=== PATIENT | female | born 1960 | race Caucasian/White ===

== ENCOUNTER → 2016-07-29 | Day surgery (SDC) | payer MEDICARE, OTHER ==
[~2016-07-29] MED LIST: AVANZA; AVINZA; CELEXA PO; CYMBALTA; DESYREL50 M1 PO; EFFEXOR PO; HYDROCODON-ACE1 EAC4 PO; HYDROCODON-ACE1 EAC5 PO; HYDROCODONE-APA1 T33 PO; IVERMECTIN3 MG PO; KADIAN PO; MOBIC15 MG PO; MONODOX100 MG PO; MS CONTIN PO; PAXIL PO; SPIRONOLACTONE50 MG PO; ZOLOFT PO
--- NOTE | ~2016-07-29 | OR ---
Unit #: [id number] #: [id number] Patient: BRENDON ASKEW [id number] [address] [address] [id number] O MR#: [id number] NAME: BRENDON ASKEW ROOM: Date of Procedure: 07/29/2016 Admission Date: 07/29/2016 Surgeon: Shahram Godinez M.D. : 1960 Attending Physician: Shahram Godinez M.D. Primary Care Physician: Generic Doctor Not In System OPERATIVE REPORT PREOPERATIVE DIAGNOSIS Chronic regional pain syndrome, lower extremity. POSTOPERATIVE DIAGNOSIS Chronic regional pain syndrome, lower extremity. PROCEDURE PERFORMED Lumbar sympathetic block with intravenous sedation and fluoroscopic guidance for needle localization. INDICATIONS FOR PROCEDURE The patient is a 55-year-old female with return of the pain flared associated with her CRPS affecting right lower extremity. This is due to her prior extensive knee surgery. She has been through extensive rehabilitative and interventional treatment. Last sympathetic blockade was done in 05/2015. She had resurgence of the symptoms associated with CRPS. Based on history, pathology, symptomatology, and available treatment options, we are going to proceed with a repeat sympathetic block today. DESCRIPTION OF PROCEDURE The patient was placed in a prone position. Standard monitors were applied. 4 mg of Versed were given for sedation and anxiolysis, which was adequate. Vital signs remained stable. Sterile prep and drape then of the thoracolumbar area was performed. The skin to the right of midline and at the L1 level was localized with 1% lidocaine. A long 22-gauge Quincke point spinal needle was then advanced with biplanar fluoroscopic guidance within the needle tip to the lateral border of the L1 vertebral body. The needle was then walked up to the anterolateral border. Position was confirmed with loss of resistance as well as with biplanar fluoroscopy and radiographic contrast. After confirming proper positioning in this manner, a dose of 10 mL of 0.25% bupivacaine were deposited. There was negative intermittent aspiration every 2 to 3 mL. The patient tolerated the procedure otherwise well and was discharged to the recovery room in stable condition. Dictated by... Shahram Godinez M.D. P/modl Unit #: [id number] #: [id number] Patient: BRENDON ASKEW TD: 07/30/2016 02:58 JOB #: [id number] OPERATIVE REPORT Page 1 of 1 X Shahram Godinez MD X PROCEDURE OPERATIVE NOTE
== END | disposition home or self-care (01) ==
LOC: CCSC 10:20
DX: G90.521 Complex regional pain syndrome I of right lower limb (principal); M51.36 Other intervertebral disc degeneration, lumbar region
CPT/HCPCS: J1040; J2250

== ENCOUNTER → 2016-08-12 | Day surgery (SDC) | payer MEDICARE, OTHER ==
--- NOTE | ~2016-08-12 | OR ---
Unit #: [id number] #: [id number] Patient: BRENDON ASKEW [id number] [address] [place], [place] [address] [id number] O MR#: [id number] NAME: BRENDON ASKEW ROOM: Date of Procedure: 08/12/2016 Admission Date: 08/12/2016 Surgeon: Shahram Godinez M.D. : 1960 Attending Physician: Shahram Godinez M.D. Referring Physician: Shahram Godinez M.D. Primary Care Physician: Generic Doctor Not In System OPERATIVE REPORT PREOPERATIVE DIAGNOSIS Chronic regional pain syndrome, lower extremity. POSTOPERATIVE DIAGNOSIS Chronic regional pain syndrome, lower extremity. PROCEDURE PERFORMED Lumbar sympathetic block with intravenous sedation and fluoroscopic guidance for needle localization. INDICATIONS FOR PROCEDURE The patient is a 55-year-old female with return of CRPS affecting her right lower extremity associated with prior knee surgeries. She treated medically with p.r.n. sympathetic blockade when her pains flare up. Last injections were done in 05/2015. The pain re-flared. She had injection about 2 weeks ago, which resulted in moderate improvement in her symptom complex and is not back to down to her when she is able to get it before with a series, so plan is to repeat at least a second injection today. If need be, she may call for additional injection. DESCRIPTION OF PROCEDURE The patient was placed in a prone position. Standard monitors were applied. 4 mg of Versed were given for sedation and anxiolysis, which were adequate. Vital signs remained stable. Sterile prep and drape then of the thoracolumbar area was performed. The skin then to the right of midline lateral to the L1 vertebral body was localized with 1% lidocaine. A long 22-gauge Quincke point spinal needle was then advanced with biplanar fluoroscopic guidance via paramedian approach to the lateral border of the L1 vertebral body. It was walked up to the anterolateral border. Position was confirmed with loss of resistance technique with biplanar fluoroscopy and radiographic contrast. After confirming proper positioning, a dose of 10 mL of 0.25% bupivacaine were deposited. There was negative intermittent aspiration every 2 to 3 mL. The patient tolerated the procedure otherwise well and was discharged to the recovery room in stable condition. Dictated by... Shahram Godinez M.D. [facility]/trey Unit #: [id number] #: [id number] Patient: BRENDON ASKEW TD: 08/12/2016 22:22 JOB #: [id number] OPERATIVE REPORT Page 1 of 1 X Shahram Godinez MD X PROCEDURE OPERATIVE NOTE
== END | disposition home or self-care (01) ==
LOC: CCSC 10:18
DX: G90.521 Complex regional pain syndrome I of right lower limb (principal); F41.9 Anxiety disorder, unspecified
CPT/HCPCS: J1040; J1885; J2250

== ENCOUNTER → 2016-08-26 | Day surgery (SDC) | payer MEDICARE, OTHER ==
--- NOTE | ~2016-08-26 | OR ---
Unit #: [id number] #: [id number] Patient: BRENDON ASKEW [id number] [address] [address] [id number] O MR#: [id number] NAME: BRENDON ASKEW ROOM: Date of Procedure: 08/26/2016 Admission Date: 08/26/2016 Surgeon: Shahram Godinez M.D. : 1960 Attending Physician: Shahram Godinez M.D. OPERATIVE REPORT PREOPERATIVE DIAGNOSIS Chronic regional pain syndrome of the lower extremity. POSTOPERATIVE DIAGNOSIS Chronic regional pain syndrome of the lower extremity. PROCEDURE PERFORMED Lumbar sympathetic block with intravenous sedation under fluoroscopic guidance for needle localization. 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 She is managed medically with p.r.n. sympathetic blockade. Last injections were done about a year ago. She did well for nearly 10 months. She had resurgence of the symptoms. Repeat injection done over the last 2 weeks had given additive definite improvement. She is not back down to normal baseline she has been able to achieve, so proceed with what should be a final injection at this point. DESCRIPTION OF PROCEDURE The patient was placed in the prone position. Standard monitors were applied. Sterile prep and drape of the thoracolumbar area was performed. The skin then to the right of midline at the L1 level was localized with 1% lidocaine. A long 22-gauge Quincke point spinal needle was then advanced with biplanar fluoroscopic guidance in the right lateral approach to the lateral border of the L1 vertebral body. The needle worked up to the anterolateral border. Position was rechecked with loss of resistance with biplanar fluoroscopy and radiographic contrast. After confirming proper needle positioning, the patient was dosed with 10 mL of 0.25% bupivacaine. There was negative intermittent aspiration every 2 to 3 mL. The patient tolerated the procedure otherwise well and was discharged to the recovery room in stable condition. Dictated by... Shahida Unger/trey TD: 08/26/2016 12:42 JOB #: [id number] Unit #: [id number] #: [id number] Patient: AZARBRENDON OPERATIVE REPORT Page 1 of 1 X Shahram Godinez MD X PROCEDURE OPERATIVE NOTE
== END | disposition home or self-care (01) ==
LOC: CCSC 10:27
DX: G90.521 Complex regional pain syndrome I of right lower limb (principal); Z88.5 Allergy status to narcotic agent; Z79.899 Other long term (current) drug therapy
CPT/HCPCS: J1040; J1885; J2250

== ENCOUNTER → 2016-11-11 | Day surgery (SDC) | payer MEDICARE, OTHER ==
--- NOTE | ~2016-11-11 | OR ---
Unit #: [id number] #: [id number] Patient: BRENDON ASKEW [id number] [address] [place], [place] [address] [id number] O MR#: [id number] NAME: BRENDON ASKEW ROOM: Date of Procedure: 11/11/2016 Admission Date: 11/11/2016 Surgeon: Shahram Godinez M.D. : 1960 Attending Physician: Shahram Godinez M.D. OPERATIVE REPORT PREOPERATIVE DIAGNOSES Chronic regional pain syndrome, right lower extremity. POSTOPERATIVE DIAGNOSIS Chronic regional pain syndrome, right lower extremity. PROCEDURE PERFORMED Lumbar sympathetic block with intravenous sedation and fluoroscopic guidance for needle localization. INDICATIONS FOR PROCEDURE The patient is 56-year-old female, who had return of right lower extremity CRPS symptoms. She is unsure whether return so quickly. She was last treated with sympathetic blockade just little over 3 months ago. Prior to that, she had done well for about 10 months with prior sympathetic blockade. She has gotten swollen and hypersensitive, and the pain has gotten significantly worse. There is no significant specific triggers, and very bad for the last 2 weeks or so. Based on history, pathology, symptomatology, and treatment options, plan is to repeat a sympathetic block today. DESCRIPTION OF PROCEDURE The patient was placed in a prone position. Standard monitors were applied. 4 mg of Versed were given for sedation and anxiolysis, which were adequate. Vital signs remained stable. Sterile prep and drape then of the thoracolumbar area was performed. The skin then to the right of midline at the L1 level was localized with 1% lidocaine. A long 22-gauge Quincke point spinal needle was then advanced with biplanar fluoroscopic guidance to the lateral border of the L1 vertebral body. The needle was walked up to the anterolateral border and advanced with loss of resistance technique. Position was then confirmed using fluoroscopy and radiographic contrast after this was achieved a dose of 10 mL of 0.25% bupivacaine were deposited. There was negative intermittent aspiration every 2 to 3 mL. The patient tolerated the procedure otherwise well and was discharged to the recovery room in stable condition. Dictated by... Shahida Unger/trey Unit #: [id number] #: [id number] Patient: BRENDON ASKEW TD: 11/11/2016 11:40 JOB #: [id number] CC: Devyn/alvina Please Delete OPERATIVE REPORT Page 1 of 1 X Shahram Godinez MD X PROCEDURE OPERATIVE NOTE
== END | disposition home or self-care (01) ==
LOC: CCSC 10:05
DX: G90.521 Complex regional pain syndrome I of right lower limb (principal)
CPT/HCPCS: J1040; J2250